=== PATIENT | female | born 1975 | race Caucasian/White ===

== ENCOUNTER 2020-11-03 19:19 | Emergency (ER) | payer MEDICAID, OTHER ==
[~2020-11-03] VITALS: Ht 165.1 cm; Wt 77.1 kg
--- NOTE | 2020-11-03 19:25 | NUR ---
MD Artis in room to do MSE.
--- NOTE | 2020-11-03 20:30 | NUR ---
DR Kerr into re eval patient.
--- NOTE | 2020-11-03 20:33 | NUR ---
Patient ambulatory to restroom with steady gait.
--- NOTE | 2020-11-03 20:56 | NUR ---
Patient discharged to home in stable condition with son taking patient. Written and verbal after care instructions given. Patient verbalizes understanding of instructions. Stressed follow up or return to ER for worsening s/s.
[2020-11-03 20:57] VITALS: BP 138/77
== END 2020-11-03 20:58 | disposition home or self-care (01) ==
LOC: ER 19:21
DX: F12.929 Cannabis use, unspecified with intoxication, unspecified (principal)
CPT/HCPCS: A4663